=== PATIENT | male | born 1950 | race African-American/Black ===

== ENCOUNTER 2024-03-24 07:34 | Inpatient (IN) | payer MEDICARE ==
[~2024-03-24] VITALS: Ht 170.2 cm; Wt 71.0 kg
[2024-03-24] VITALS (7 sets, daily range): BP systolic 113–138; BP diastolic 59–69; PULSE 82–94; RESP 14–20; TEMP 97.9–99.2; O2SAT 98–100
[2024-03-24] MEDS ORDERED: SODIUM CHLORIDE 0.9% 1000ML 1,000 ML IV SCH (08:00)
[2024-03-24 08:19] LABS: BASOPHILS % 0.1 % (0.0-1.0); EOSINOPHILS % 0.3 % (0.0-6.0); HEMATOCRIT 37.7 % (38.2-49.6); HEMOGLOBIN 12.1 g/dL (14.0-18.0); LYMPHOCYTES # (AUTO) 0.7 (1.0-3.2); LYMPHOCYTES % 5.4 % (18.0-39.1); MEAN CORPUSCULAR HEMOGLOBIN 33.2 pg (28-32); MEAN CORPUSCULAR HGB CONC 32.1 g/dL (31-35); MEAN CORPUSCULAR VOLUME 103.3 fL (81-99); MONOCYTES # (AUTO) 0.9 (0.2-0.8); MONOCYTES % 6.6 % (4.4-11.3); NEUTROPHILS # (AUTO) 11.8 (2.1-6.9); NEUTROPHILS % 87.2 % (38.7-80.0); PLATELET COUNT 127 x10e3/uL (140-360); RED BLOOD COUNT 3.65 x10e6/uL (4.3-5.7); RED CELL DISTRIBUTION WIDTH 15.7 % (11.7-14.4); WHITE BLOOD COUNT 13.55 x10e3/uL (4.8-10.8)
[2024-03-24 08:35] LABS: CLARITY,URINE CLOUDY (CLEAR); COLOR,URINE YELLOW (YELLOW); GLUCOSE, URINE NEGATIVE (NEGATIVE); LEUKOCYTE ESTERASE ,URINE LARGE (NEGATIVE); NITRITE,URINE NEGATIVE (NEGATIVE); PH,URINE 6 (5 - 7); PROTEIN,URINE DIPSTICK 2+ (NEGATIVE)
[2024-03-24 08:36] LABS: BACTERIA,URINE FEW /HPF; BILIRUBIN,URINE NEGATIVE (NEGATIVE); EPITHELIAL CELLS,URINE FEW /LPF; KETONES,URINE NEGATIVE (NEGATIVE); RBC,URINE >50 /HPF (0-5); URINE UROBILINOGEN 0.2 mg/dL (0.2 - 1); WBC,URINE (MAN) >50 /HPF (0-5)
[2024-03-24 08:37] LABS: YEAST,URINE MANY
[2024-03-24 08:54] LABS: ALBUMIN 3.5 g/dL (3.5-5.0); ALBUMIN/GLOBULIN RATIO 0.9 (0.8-2.0); ANION GAP 16.5 mmol/L (8-16); BILIRUBIN,TOTAL 0.4 mg/dL (0.2-1.2); CALCIUM 10.8 mg/dL (8.4-10.2); CREATININE, SERUM 4.67 mg/dL (0.72-1.25); POTASSIUM 3.5 mmol/L (3.5-5.1); TOTAL PROTEIN 7.6 g/dL (6.5-8.1)
[2024-03-24] MEDS: SODIUM CHLORIDE 0.9% 500ML 500 ML IV STA (08:56)
[2024-03-24] MEDS: ACETAMINOPHEN 1000 MG/100 ML IV STA (08:56)
[2024-03-24] MEDS ORDERED: ONDANSETRON HCL INJ 2MG/ML 2ML 2 MG/ML VIAL IV PRN (09:00)
[2024-03-24] MEDS: FLUCONAZOLE 200 MG/100 ML 100 ML IV SCH (09:15)
[2024-03-24] MEDS ORDERED: HEPARIN SOD (PORCINE) 5,000 UNIT/ML VIAL ONE (10:38)
[2024-03-24] MEDS ORDERED: SODIUM CHLORIDE 0.9% 1000ML 2,000 ML ONE (10:38)
[2024-03-24] MEDS ORDERED: SODIUM CHLORIDE 0.9% 250ML 500 ML IV PRN (11:15)
[2024-03-24] MEDS ORDERED: SODIUM CHLORIDE 0.9% 1000ML 2,000 ML IV PRN (11:15)
[2024-03-24] MEDS ORDERED: HEPARIN SOD (PORCINE) 1000 UNIT/ML SDV IV PRN (11:15)
[2024-03-25] VITALS (9 sets, daily range): BP systolic 122–159; BP diastolic 64–97; PULSE 50–100; RESP 17–21; TEMP 97.5–98.6; O2SAT 96–100
[2024-03-25 06:05] LABS: BASOPHILS % 0.2 % (0.0-1.0); EOSINOPHILS # (AUTO) 0.1 (0.0-0.4); EOSINOPHILS % 0.9 % (0.0-6.0); HEMATOCRIT 38.1 % (38.2-49.6); HEMOGLOBIN 11.8 g/dL (14.0-18.0); LYMPHOCYTES # (AUTO) 1.8 (1.0-3.2); LYMPHOCYTES % 17.1 % (18.0-39.1); MEAN CORPUSCULAR HEMOGLOBIN 32.2 pg (28-32); MEAN CORPUSCULAR VOLUME 104.1 fL (81-99); MONOCYTES # (AUTO) 1.6 (0.2-0.8); MONOCYTES % 15.4 % (4.4-11.3); NEUTROPHILS # (AUTO) 6.9 (2.1-6.9); NEUTROPHILS % 66.2 % (38.7-80.0); PLATELET COUNT 113 x10e3/uL (140-360); RED BLOOD COUNT 3.66 x10e6/uL (4.3-5.7); RED CELL DISTRIBUTION WIDTH 15.2 % (11.7-14.4); WHITE BLOOD COUNT 10.43 x10e3/uL (4.8-10.8)
[2024-03-25 06:41] LABS: ANION GAP 15.2 mmol/L (8-16); CALCIUM 10.9 mg/dL (8.4-10.2); CREATININE, SERUM 3.03 mg/dL (0.72-1.25)
[2024-03-25 06:43] LABS: POTASSIUM 3.2 mmol/L (3.5-5.1)
[2024-03-25] MEDS ORDERED: ACETAMINOPHEN 1000 MG/100 ML IV PRN (10:30)
[2024-03-25] MEDS ORDERED: HYDRALAZINE HCL 20 MG/ML VIAL IV PRN (10:30)
[2024-03-25] MEDS: POTASSIUM CHLORIDE 10MEQ/100ML 200 ML IV ONE (12:02)
[2024-03-25] MEDS ORDERED: AMLODIPINE BESYL5 MG GT (19:23)
[2024-03-25] MEDS ORDERED: ATORVASTATIN CA20 MG GT (19:31)
[2024-03-25] MEDS ORDERED: ELIQUIS2.5 MG GT (19:31)
[2024-03-25] MEDS ORDERED: MULTIVITAMINS1 EAC4 GT (19:31)
[2024-03-25] MEDS ORDERED: MIDODRINE HCL5 MG PO (19:31)
[2024-03-25] MEDS ORDERED: IMODIUM A-1 MG/7.5 M GT (19:31)
[2024-03-25] MEDS ORDERED: ARICEPT5 MG GT (19:31)
[2024-03-25] MEDS ORDERED: FAMOTIDINE20 MG GT (19:31)
[2024-03-25] MEDS ORDERED: MIRALAX17 GM GT (20:10)
[2024-03-25] MEDS ORDERED: ONDANSETRON ODT4 MG GT (20:10)
[2024-03-25] MEDS ORDERED: POTASSIUM CHLO20 ME1 GT (20:11)
[2024-03-25] MEDS ORDERED: VALPROIC A250 MG/5 M GT (20:11)
[2024-03-25] MEDS ORDERED: PAXIL20 MG GT (20:11)
[2024-03-25] MEDS ORDERED: TYLENOL325 MG GT (20:11)
[2024-03-25] MEDS ORDERED: OXYBUTYNIN CHLOR5 MG GT (20:11)
[2024-03-25] MEDS ORDERED: XANAX0.25 MG GT (20:11)
[2024-03-26] VITALS (8 sets, daily range): BP systolic 116–142; BP diastolic 75–86; PULSE 52–100; RESP 16–20; TEMP 97.3–98.7; O2SAT 94–100
[2024-03-26 05:54] LABS: BASOPHILS % 0.4 % (0.0-1.0); EOSINOPHILS # (AUTO) 0.1 (0.0-0.4); EOSINOPHILS % 1.9 % (0.0-6.0); HEMATOCRIT 33.5 % (38.2-49.6); HEMOGLOBIN 10.7 g/dL (14.0-18.0); LYMPHOCYTES # (AUTO) 1.4 (1.0-3.2); LYMPHOCYTES % 20.8 % (18.0-39.1); MEAN CORPUSCULAR HEMOGLOBIN 32.4 pg (28-32); MEAN CORPUSCULAR HGB CONC 31.9 g/dL (31-35); MEAN CORPUSCULAR VOLUME 101.5 fL (81-99); MONOCYTES # (AUTO) 0.9 (0.2-0.8); MONOCYTES % 13.1 % (4.4-11.3); NEUTROPHILS # (AUTO) 4.3 (2.1-6.9); NEUTROPHILS % 63.5 % (38.7-80.0); PLATELET COUNT 141 x10e3/uL (140-360); RED CELL DISTRIBUTION WIDTH 14.8 % (11.7-14.4); WHITE BLOOD COUNT 6.72 x10e3/uL (4.8-10.8)
[2024-03-26 06:17] LABS: ANION GAP 12.8 mmol/L (8-16); CALCIUM 11.1 mg/dL (8.4-10.2); CREATININE, SERUM 4.03 mg/dL (0.72-1.25); MAGNESIUM 2.5 MG/DL (1.3-2.1); PHOSPHORUS 3.3 MG/DL (2.3-4.7)
[2024-03-26 06:26] LABS: POTASSIUM 2.8 mmol/L (3.5-5.1)
[2024-03-26] MEDS: POTASSIUM CHLORIDE 20MEQ/100ML 100 ML IV ONE (08:26)
[2024-03-26 15:53] LABS: HEPATITIS B SURFACE AG (P) Negative (Negative)
[2024-03-26] MEDS ORDERED: MIDODRINE HCL 5 MG TABLET PO PRN (18:15)
[2024-03-26] MEDS ORDERED: ONDANSETRON HCL 4 MG ORAL DISINTEGRATING TAB GT PRN (18:15)
[2024-03-26] MEDS ORDERED: LOPERAMIDE HCL 2 MG/15 ML UDC PO PRN (18:15)
[2024-03-26] MEDS: ATORVASTATIN 20 MG TAB GT SCH (20:31)
[2024-03-26] MEDS: DONEPEZIL HCL 5 MG TAB GT SCH (20:31)
[2024-03-26] MEDS ORDERED: POTASSIUM CHLORIDE 20MEQ/15ML UDC GT SCH (21:00)
[2024-03-26] MEDS: VALPROATE 250MG/5ML ORAL LIQ 5ml GT SCH (23:26)
[2024-03-26] MEDS: KCL 20 MEQ PACKET/ ORAL SOLN PEG SCH (23:26)
[2024-03-27] VITALS (8 sets, daily range): BP systolic 97–129; BP diastolic 61–85; PULSE 85–92; RESP 16–20; TEMP 97.7–99.5; O2SAT 95–100
[2024-03-27] MEDS: ACETAMINOPHEN 325 MG TAB GT PRN (05:16)
[2024-03-27 08:36] LABS: BASOPHILS # (AUTO) 0.1 (0.0-0.1); BASOPHILS % 0.9 % (0.0-1.0); EOSINOPHILS # (AUTO) 0.2 (0.0-0.4); EOSINOPHILS % 4.1 % (0.0-6.0); HEMATOCRIT 35.2 % (38.2-49.6); HEMOGLOBIN 11.4 g/dL (14.0-18.0); LYMPHOCYTES # (AUTO) 1.2 (1.0-3.2); LYMPHOCYTES % 22.2 % (18.0-39.1); MEAN CORPUSCULAR HEMOGLOBIN 32.9 pg (28-32); MEAN CORPUSCULAR HGB CONC 32.4 g/dL (31-35); MEAN CORPUSCULAR VOLUME 101.7 fL (81-99); MONOCYTES # (AUTO) 0.7 (0.2-0.8); MONOCYTES % 12.2 % (4.4-11.3); NEUTROPHILS # (AUTO) 3.3 (2.1-6.9); NEUTROPHILS % 60.4 % (38.7-80.0); PLATELET COUNT 149 x10e3/uL (140-360); RED BLOOD COUNT 3.46 x10e6/uL (4.3-5.7); RED CELL DISTRIBUTION WIDTH 15.3 % (11.7-14.4); WHITE BLOOD COUNT 5.41 x10e3/uL (4.8-10.8)
[2024-03-27] MEDS ORDERED: FAMOTIDINE 20 MG TAB GT SCH (09:00)
[2024-03-27] MEDS: AMLODIPINE BESYLATE 5 MG TAB GT SCH (10:27)
[2024-03-27] MEDS: MULTIVITAMINS/MINERALS TAB GT SCH (10:27)
[2024-03-27] MEDS: POLYETHYLENE GLYCOL 3350 17 GM PACK GT SCH (10:28)
[2024-03-27] MEDS: PAROXETINE HCL 20 MG TAB GT SCH (10:28)
[2024-03-27] MEDS: OXYBUTYNIN CHLORIDE 5 MG TAB GT SCH (10:28)
[2024-03-27 10:35] LABS: ALBUMIN 2.8 g/dL (3.5-5.0); ALBUMIN/GLOBULIN RATIO 0.7 (0.8-2.0); BILIRUBIN,TOTAL 0.3 mg/dL (0.2-1.2); CALCIUM 10.2 mg/dL (8.4-10.2); CREATININE, SERUM 3.35 mg/dL (0.72-1.25); TOTAL PROTEIN 6.8 g/dL (6.5-8.1)
[2024-03-27] MEDS: CEFTRIAXONE 2 GM in SODIUM CHLORIDE 0.9% 100 ML IV SCH (20:57)
[2024-03-28] VITALS: BP 119/75; PULSE 93; RESP 18; TEMP 98.6; O2SAT 99
[2024-03-28 05:28] VITALS: BP 104/82; PULSE 95; RESP 19; TEMP 98; O2SAT 100
[2024-03-28] MEDS: PANTOPRAZOLE SODIUM 40 MG SUSPDR.PKT PEG SCH (05:29)
[2024-03-28 08:00] VITALS: BP 119/74; PULSE 90; RESP 16; TEMP 98.6; O2SAT 100
[2024-03-28 10:57] VITALS: BP 119/74; PULSE 90; RESP 16; TEMP 98.6; O2SAT 100
[2024-03-28 11:23] VITALS: BP 121/83; PULSE 92; RESP 16; TEMP 97.6; O2SAT 99
[2024-03-28 15:50] VITALS: BP 120/77; PULSE 96; RESP 17; TEMP 98.7; O2SAT 100
[2024-03-29] MEDS ORDERED: ALPRAZOLAM 0.25 MG TAB GT SCH (09:00)
== END 2024-03-28 17:35 | DRG 698 ==
LOC: ER 07:40 → ERHOLD 08:57 → MED/SURG2 17:01
PROVIDERS: ADMIT Internal Medicine; ATTEND Internal Medicine
PROC: 3E0333Z Introduction of Anti-inflammatory into Peripheral Vein, Percutaneous Approach (ICD-10-PCS; principal; 2024-03-24)
PROC: 5A1D70Z Performance of Urinary Filtration, Intermittent, Less than 6 Hours Per Day (ICD-10-PCS; 2024-03-24)
DX: T83.511A Infection and inflammatory reaction due to indwelling urethral catheter, initial encounter (principal); A41.9 Sepsis, unspecified organism; N18.6 End stage renal disease; I12.0 Hypertensive chronic kidney disease with stage 5 chronic kidney disease or end stage renal disease; D68.9 Coagulation defect, unspecified; E11.22 Type 2 diabetes mellitus with diabetic chronic kidney disease; N40.1 Benign prostatic hyperplasia with lower urinary tract symptoms; R33.8 Other retention of urine; R31.0 Gross hematuria; Z93.1 Gastrostomy status; I25.10 Atherosclerotic heart disease of native coronary artery without angina pectoris; Z99.2 Dependence on renal dialysis; Z11.52 Encounter for screening for COVID-19; I69.320 Aphasia following cerebral infarction; Y84.6 Urinary catheterization as the cause of abnormal reaction of the patient, or of later complication, without mention of misadventure at the time of the procedure; Z79.01 Long term (current) use of anticoagulants; I25.2 Old myocardial infarction; Z95.5 Presence of coronary angioplasty implant and graft
CPT/HCPCS: 36415; 51700; 71045; 74176; 80048; 80053; 81001; 82948; 83605; 83735; 84100; 85025; 86706; 87040; 87086; 87340; 93005; 94799; 99252; 99285; J0696; J1450; J1644; J2470; J2543; J3480; J7030; J7040; J7050; U0002